=== PATIENT | male | born 1955 | race Two or more races ===

== ENCOUNTER → 2018-02-22 | Outpatient (CLI) | END | disposition home or self-care (01) ==

== ENCOUNTER → 2018-04-05 | Outpatient (CLI) | END | disposition home or self-care (01) ==

== ENCOUNTER → 2018-07-27 | Outpatient (CLI) | payer OTHER ==
--- NOTE | 2018-07-27 21:34 | HKNOTE ---
DATE OF SERVICE: 07/27/2018 CHIEF COMPLAINT: Right shoulder pain. HISTORY OF PRESENT ILLNESS: Mr. Abraham is complaining of chronic right shoulder pain. The pain is i ntermittent. It interferes with activities of daily living. He has difficulty raising his arm. He has pain at night. He denies any numbness or weakness. RIGHT SHOULDER EXAMINATION: Tender over the AC joint, 180 degrees of abduction, [address] flexion, 90 degrees external rotation, 90 degrees internal rotation, 50 degrees extension. Positi ve Morelos test, positive Neer's test, negative belly press test, negative lift off. MRI of the right shoulder, there is a full thickness tear of the supraspinatus tendon with 1.8 cm ret raction. There is no fatty atrophy. There is a low-grade partial tear of the infraspinatus tendon. IMPRESSION: A 62-year-old male with right shoulder rotator cuff tear. PLAN: We will request authorization for outpatient physical therapy. Should he continue pain in the future, he is a candidate for a right shoulder steroid injection. Dictated By: KAYLIN MENDEZ/BRIA Conf#: [id number] DID#: [id number]
== END | disposition home or self-care (01) ==
LOC: HKI 14:23
PROVIDERS: ATTEND Orthopaedic Surgery Adult Reconstructive Orthopaedic Surgery
DX: M75.101 Unspecified rotator cuff tear or rupture of right shoulder, not specified as traumatic (principal)
CPT/HCPCS: G0463